=== PATIENT | male | born 1935 | race Caucasian/White ===

== ENCOUNTER 2019-04-13 10:01 | Inpatient (IN) | payer MEDICARE ==
[2019-04-13] MEDS ORDERED: SODIUM CHLORIDE 0.9% 1,000 ML IV ONE (10:35)
[2019-04-13] MEDS ORDERED: fentaNYL (PF) 50 MCG/ML 2 ML AMP ONE (10:50)
[2019-04-13] MEDS ORDERED: MIDAZOLAM (PF) 2 MG/2 ML VIAL IV ONE (10:54)
[2019-04-13] MEDS ORDERED: fentaNYL (PF) 50 MCG/ML 2 ML AMP IV ONE (10:54)
[2019-04-13] MEDS ORDERED: LIDOCAINE 1% INJ 10MG/ML (20 ML MDV) SQ ONE (10:58)
[2019-04-13] MEDS ORDERED: NITROGLYCERIN SL TABS 0.4 MG TAB SUBLINGUAL ONE ×2 (11:21→11:22)
[2019-04-13] MEDS ORDERED: BIVALIRUDIN BOLUS 250 MG/50 ML IV ONE (11:31)
[2019-04-13] MEDS ORDERED: TICAGRELOR 90 MG TAB ONE (11:31)
[2019-04-13] MEDS ORDERED: BIVALIRUDIN 250 MG in SODIUM CHLORIDE 0.9% 50 ML IV ONE (11:32)
[2019-04-13] MEDS ORDERED: TICAGRELOR 90 MG TAB PO ONE (11:33)
[2019-04-13] MEDS ORDERED: IOPAMIDOL-370 125ML BTL INJ ONE (11:36)
[2019-04-13] MEDS ORDERED: NITROGLYCERIN 1000MCG/10ML SYRINGE INTRACORON ONE (11:42)
[2019-04-13] MEDS ORDERED: IOPAMIDOL-370 100ML BTL INJ ONE (11:43)
[2019-04-13] MEDS ORDERED: NITROGLYCERIN SL TABS 0.4 MG TAB SUBLINGUAL PRN (11:50)
[2019-04-13] MEDS ORDERED: ZOLPIDEM 5 MG TAB PO PRN (11:50)
[2019-04-13] MEDS ORDERED: RX INFO: IV CONTRAST WAS GIVEN 1 EACH MISC MISCELLANE PRN (11:50)
[2019-04-13] MEDS ORDERED: MAG HYDROX/AL HYDROX/SIMETH 30 ML CUP PO PRN (11:50)
[2019-04-13] MEDS ORDERED: ATROPINE SULFATE 0.1 MG/ML 10ML SYRINGE IV PRN (11:50)
--- NOTE | 2019-04-13 11:56 | CC ---
CARDIAC CATHETERIZATION REPORT Mr. Aranda is an 83-year-old gentleman who was admitted at [facility] with a non ST-segment elevation myocardial infarction. In view of that, the patient was transferred over here. The patient does not have any risk factors or prior cardiac history. PROCEDURE: The right groin was prepped and draped in the usual manner and the skin was infiltrated with 2% Xylocaine. The right femoral artery was entered using Seldinger technique. A #6- [place] sheath was placed in. Selective coronary angiography was then performed in multiple projections and the left ventricular pressures were obtained. Patient tolerated the procedure well. Moderate sedation was used. Total sedation time was 22 minutes. HEMODYNAMICS: The left ventricular end-diastolic pressure is 22 mmHg prior to angiography. No gradient is noted across the aortic valve. SELECTIVE CORONARY ANGIOGRAPHY: Left main coronary artery shows ostial mild stenosis of about 30%. LAD is a good caliber blood vessel and it is a good caliber in proximal and midportion. distally, LAD has 80% stenosis. Beyond that, LAD is a very small size caliber blood vessel with limited distribution. Circumflex coronary artery is a good caliber blood vessel and the obtuse marginal branch has 99% stenosis. Right coronary artery is normal caliber blood vessel and gives rise to the posterior descending artery and is dominant in distribution. Right coronary artery and its branches are normal. FINAL IMPRESSION: 1. This study reveals 99% stenosis of the obtuse marginal branch of the circumflex. 2. The left main ostium has about 30% stenosis. 3. The distal LAD near the apex where it is a small caliber blood vessel has about 80% stenosis. RECOMMENDATIONS: The films were reviewed with Dr. Isbell. Will proceed with a stent to the obtuse marginal branch. MMODL / IJN: [id number] /
[2019-04-13] MEDS ORDERED: SODIUM CHLORIDE 0.9% 1,000 ML IV SCH (12:00)
--- NOTE | 2019-04-13 12:15 | PTCA ---
PERCUTANEOUSTRANS CORORONARY ANGIOGRAPHY DATE OF SERVICE: April 13, 2019 PERFORMING PHYSICIAN: Neel Isbell MD. PROCEDURE PERFORMED: Successful stenting of the proximal left circumflex using 3.25 x 18 mm Xience GERMAIN with an excellent angiographic result and reduction of stenosis from 90% to 0%. INDICATION: This is an 83-year-old gentleman with hypertension and dyslipidemia who presented to the [facility] with chest discomfort and ruled in for acute non-ST elevation myocardial infarction. He was seen and evaluated by Dr. Dan who recommended proceeding with a heart catheterization. The patient underwent a heart catheterization by Dr. 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 Because of that, PCI of the left circumflex was advised. APPROACH: Right common femoral artery. COMPLICATION: None. LEVEL OF SEDATION: Moderate with a sedation length of 15 minutes. PROCEDURE DESCRIPTION: Please refer to diagnostic heart catheterization that was performed by Dr. Beck earlier today. Anticoagulation was initiated using Angiomax. Subsequently the patient was given 180 Brilinta. After that I did engage the left main using JL4 guide. A run- through wire was used to wire the lesion in the left circumflex. I did direct stenting on the lesion using a 3.25 x 18 mm Xience drug-eluting stent where the stent was positioned under fluoroscopic guidance and deployed under 12 atmospheres for 20 seconds with the following angiogram showing excellent angiographic results with reduction of stenosis from 90% to 0%. The procedure was completed without any complication. POSTPROCEDURE MANAGEMENT: 1. Dual antiplatelet therapy. 2. Risk factor modifications. 3. Follow up with the patient. MMODL / IJN: [id number] /
--- NOTE | 2019-04-13 12:18 | LTR ---
April 13, 2019 Re: Jerel Aranda Dear Dr. Santos: Mr. Jerel Aranda underwent today successful stenting of the left circumflex. Thank you for allowing us to participate in his care and please do not hesitate to call if you have any question or concern. Sincerely, MD PATY López / KEITH: [id number] /
[2019-04-13] MEDS ORDERED: ATORVASTATIN 80 MG TAB PO SCH (21:00)
[2019-04-13] MEDS: TICAGRELOR 90 MG TAB PO SCH (22:17)
[2019-04-13] MEDS: METOPROLOL TARTRATE 12.5 MG TAB PO SCH (22:18)
[2019-04-14 06:10] VITALS: RESP 18
[2019-04-14 07:00] LABS: African American GFR (CKD) >90 (>60 ml/min/1.73 sqM)
[2019-04-14] MEDS: TICAGRELOR 90 MG TAB PO SCH (07:57)
[2019-04-14] MEDS: METOPROLOL TARTRATE 12.5 MG TAB PO SCH (07:57)
[2019-04-14] MEDS ORDERED: ASPIRIN 81 MG PO SCH (09:00)
[2019-04-14 11:17] VITALS: BMI 24.6
--- NOTE | 2019-04-14 13:46 | P.PN ---
Subjective Progress Note Date: 04/14/19 This is an 83-year-old gentleman who was admitted to [facility] with a non- ST elevation WA in view of that the patient was transferred here, underwent a cardiac catheterization by Dr. Beck with subsequent angioplasty and stenting of the proximal circumflex. He was seen and examined this morning, he's been up ambulating in the hallway most of the morning, chest pain-free, EKG shows normal sinus rhythm with no changes from post-PCI. Blood pressure 120/50 with a heart rate in the 60s to 70s, 97% on room air. Objective - Vital Signs Vital signs: Vital Signs Temp 98.1 F 04/14/19 08:00 Pulse 78 04/14/19 08:00 Resp 18 04/14/19 08:00 BP 140/79 04/14/19 08:00 Pulse Ox 97 04/14/19 08:00 Intake & Output 04/13/19 04/14/19 04/14/19 18:59 06:59 18:59 Intake Total 792.61 360 Output Total 1100 Balance -307.39 360 Weight 74 kg 75.8 kg 75.8 kg Intake: IV 72.61 Oral 720 360 Output: Urine 1100 Other: Voiding Method Urinal Urinal # Voids 1 3 - Exam PHYSICAL EXAMINATION: GENERAL: 83-year-old gentleman in no acute distress at the time of my examination HEENT: Head is atraumatic, normocephalic. Pupils equal, round. Sclera anicteric. Conjunctiva are clear. Mucous membranes of the mouth are moist. Neck is supple. There is no elevated jugular venous pressure.] bruit is heard. HEART EXAMINATION: Heart S1, S2 normal. No murmur or gallop heard. CHEST EXAMINATION: Lungs are clear to auscultation and precussion. No chest wall tenderness is noted on palpation or with deep breathing. ABDOMEN: Soft, nontender. Bowel sounds are heard. No organomegaly noted. EXTREMITIES: 2+ peripheral pulses with no evidence of peripheral edema and no calf tenderness noted. Right groin soft, no evidence of any hematoma. NEUROLOGIC patient is awake, alert and oriented ?-3. . - Labs CBC & Chem 7: 04/14/19 05:46 Assessment and Plan Plan: Assessment and plan #1 Non-Q-wave WA status post angioplasty and stenting of the circumflex artery. #2 hypertension #3 hyperlipidemia Plan From cardiology's perspective, patient may be able to be discharged home today. We'll make him a follow-up appointment to see Dr. VC Beck in the office post discharge. Discharge medications include aspirin 81 mg daily, Lipitor 80 mg daily, metoprolol 12-1/2 mg twice a day and Brilinta 90 mg one tablet by mouth twice a day along with sublingual nitroglycerin. Patient regarding his medications activity and care of groin. DNP note has been reviewed, I agree with a documented findings and plan of care. Patient was seen and examined.
[2019-04-14 13:48] VITALS: BP 144/65; PULSE 72; TEMP 98
--- NOTE | 2019-04-14 18:01 | P.HPIM ---
History of Present Illness H&P Date: 04/14/19 Chief Complaint: chest pain history of presenting complaint: this is a pleasant 83-year-old patient of Dr. Umberto Santos.patient initially presented to [facility]. Patient Had on the Previous Evening Started with Chest Pain Shortness of Breath and Some Radiation Dizziness Lightheadedness Not Feeling Well. Patient Presented to the ER. Troponin Started Becoming Posi tive and Peaked at 24. she was seen by Dr. Dan at [facility]. Patient Was Transferred down Here.for a cardiac catheterization.successful stenting of the circumflex was carried out. Review of systems: GEN.: [tired] EYES: [None] HEENT: [None] NECK: [None] RESPIRATORY: [None] CARDIOVASCULAR: [as above] GASTROINTESTINAL: [None] GENITOURINARY: [None] MUSCULOSKELETAL: [None] LYMPHATICS: [None] HEMATOLOGICAL: [None] PSYCHIATRY: [None] NEUROLOGICAL: [None] past medical history: GERD, rheumatoid arthritis, gastric ulcer, bilateral hip fractures Social history lives alone and uses a cane occasionally patient smoked for 21 years stopped in [id number]. Alcohol none now retired. family history: Unremarkable. Aleksandra of colitis at age of 35 Physical examination: VITAL SIGNS: [97.9, 65, 18, 134/71] GENERAL: [Average built, sitting up, comfortable]. EYES: [Pupils equal. Conjunctiva justine]l. HEENT: [External appearance of nose and ears normal, oral cavity grossly normal]. NECK: [JVD not raised; masses not palpable]. HEART: [First and second heart sounds are normal; no edema]. LUNGS:[ Respiratory rate normal; clear to auscultation]. ABDOMEN: [Soft, nontender, liver spleen not palpable, no masses palpable]. LYMPHATICS: [No lymph nodes palpable in the axilla and neck]. PSYCH: [Alert and oriented x3; mood and affect justine]l. NEUROLOGICAL: [Cranial nerves grossly intact; no facial asymmetry, power and sensation grossly intact]. EKG had shown non-ST elevation Troponin peaked to 24 Assessment: -Acute non-Q wave myocardial infarction -Rheumatoid arthritis -Primary osteoarthritis -GERD Plan: Patient status post cardiac catheterization. Further medications per cardiology. Care was discussed with the patient. has been stable. Past Medical History Past Medical History: GERD/Reflux, Rheumatoid Arthritis (RA) Additional Past Medical History / Comment(s): Gastric ulcer, rheumatoid arthritis bilateral hands and knees, bilateral hip fractures. Last Myocardial Infarction Date:: 04/13/19 History of Any Multi-Drug Resistant Organisms: None Reported Past Surgical History: Orthopedic Surgery Additional Past Surgical History / Comment(s): 04/13/19 PCI with stent to left CX, colonoscopy, bilateral hip fractures with surgery. Past Anesthesia/Blood Transfusion Reactions: No Reported Reaction Smoking Status: Former smoker - Past Family History Father Additional Family Medical History / Comment(s): Father of colitis at the age of 35 yrs. Mother Family Medical History: No Reported History Additional Family Medical History / Comment(s): Mother was healthy. Medications and Allergies Home Medications Medication Instructions Recorded Confirmed Type Magnesium 200 mg PO DAILY 04/13/19 04/13/19 History Multivitamins, Thera [Multivitamin 1 tab PO DAILY 04/13/19 04/13/19 History (formulary)] Aspirin 81 mg PO DAILY #30 chew 04/14/19 Rx Atorvastatin [Lipitor] 80 mg PO HS #30 tab 04/14/19 Rx Metoprolol Tartrate [Lopressor] 12.5 mg PO BID #603 tab 04/14/19 Rx Nitroglycerin Sl Tabs [Nitrostat] 0.4 mg SUBLINGUAL Q5M PRN #25 tab 04/14/19 Rx Ticagrelor [Brilinta] 90 mg PO BID #60 tab 04/14/19 Rx Allergies Allergy/AdvReac Type Severity Reaction Status Date / Time aspirin Allergy Unknown Verified 04/13/19 11:45 Physical Exam Vitals: Vital Signs Temp Pulse Pulse Resp BP Pulse Ox 04/14/19 08:00 98.1 F 78 18 140/79 97 04/14/19 06:09 60 18 126/60 96 04/14/19 04:00 98.2 F 67 64 16 123/58 97 04/14/19 00:00 67 16 04/13/19 23:36 98 F 67 16 125/63 97 04/13/19 20:00 97.8 F 75 60 14 114/55 96 04/13/19 15:44 97.8 F 60 18 133/61 97 04/13/19 15:36 98 F 71 16 130/67 97 04/13/19 14:36 98.1 F 70 18 138/75 96 04/13/19 13:36 98.1 F 71 18 149/74 97 04/13/19 13:06 97.9 F 65 18 134/71 96 04/13/19 12:36 68 16 140/79 97 04/13/19 12:21 67 16 146/80 95 04/13/19 12:06 67 16 138/76 95 04/13/19 11:58 66 16 146/80 98 Intake and Output 04/13/19 04/14/19 04/14/19 22:59 06:59 14:59 Intake Total 480 360 Output Total 900 Balance -420 360 Intake: Oral 480 360 Output: Urine 900 Other: Voiding Method Urinal Urinal # Voids 1 3 Weight 75.8 kg 75.8 kg Results CBC & Chem 7: 04/14/19 05:46 Thrombosis Risk Factor Assmnt - Choose All That Apply Any of the Below Risk Factors Present?: Yes Each Factor Represents 1 point: Acute IN Other Risk Factors: Yes Each Risk Factor Represents 3 Points: Age 75 years or older Other congenital or acquired thrombophilia - If yes, enter type in comment: No Thrombosis Risk Factor Assessment Total Risk Factor Score: 4 Thrombosis Risk Factor Assessment Level: Moderate Risk
== END 2019-04-14 15:10 | disposition home or self-care (01) | DRG 247 ==
LOC: 3SCARD 10:01
PROVIDERS: ADMIT Hospitalist; ATTEND Hospitalist
PROC: 4A023N7 Measurement of Cardiac Sampling and Pressure, Left Heart, Percutaneous Approach (ICD-10-PCS; 2019-04-13)
PROC: B2111ZZ Fluoroscopy of Multiple Coronary Arteries using Low Osmolar Contrast (ICD-10-PCS; 2019-04-13)
PROC: 027034Z Dilation of Coronary Artery, One Artery with Drug-eluting Intraluminal Device, Percutaneous Approach (ICD-10-PCS; principal; 2019-04-13 10:33)
DX: I21.4 Non-ST elevation (NSTEMI) myocardial infarction (principal); M06.9 Rheumatoid arthritis, unspecified; E78.5 Hyperlipidemia, unspecified; I10 Essential (primary) hypertension; I25.10 Atherosclerotic heart disease of native coronary artery without angina pectoris; K21.9 Gastro-esophageal reflux disease without esophagitis; M19.90 Unspecified osteoarthritis, unspecified site; Z79.82 Long term (current) use of aspirin; Z79.899 Other long term (current) drug therapy; Z87.11 Personal history of peptic ulcer disease; Z87.891 Personal history of nicotine dependence; Z96.642 Presence of left artificial hip joint; Z88.6 Allergy status to analgesic agent
CPT/HCPCS: 82565; 93458; C1874